=== PATIENT | female | born 1990 | race Two or more races ===

== ENCOUNTER 2018-09-06 19:30 | Emergency (ER) | payer BC, OTHER ==
[~2018-09-06] VITALS: Ht 160 cm; Wt 68.0 kg
[2018-09-06 19:47] VITALS: BP 118/64
[2018-09-06] MEDS ORDERED: AMOXICILLIN/CLAVUL 875 MG TAB PO ONE (22:45)
[2018-09-06] MEDS ORDERED: cefTRIAXone SOD 1,000 MG VL IM ONE (22:45)
== END 2018-09-07 00:27 | disposition home or self-care (01) ==
LOC: ER 19:36
DX: S41.152A Open bite of left upper arm, initial encounter (principal); W50.3XXA Accidental bite by another person, initial encounter; Y93.89 Activity, other specified; Y99.8 Other external cause status; Y92.89 Other specified places as the place of occurrence of the external cause
CPT/HCPCS: 96372; 99283; J0696